=== PATIENT | female | born 1980 | race Caucasian/White ===

== ENCOUNTER 2023-06-26 21:05 | Emergency (ER) | payer OTHER, SELFPAY ==
[2023-06-26 21:40] VITALS: BP 123/63; PULSE 66; RESP 14; TEMP 36.7; O2SAT 100
[2023-06-26 22:46] VITALS: BP 112/52; PULSE 66; RESP 15; TEMP 36.5; O2SAT 100
--- NOTE | 2023-06-26 22:47 | ED.GENADULT ---
HPI - General Adult General Chief complaint: Allergic Reaction Stated complaint: AXR Time Seen by Provider: 06/26/23 21:51 Source: patient Mode of arrival: ambulatory Limitations: no limitations History of Present Illness HPI narrative: This is a 42-year-old female who presents to the ED with chief complaints of possible allergic reaction. Patient reports that she was using a send she was which was used several times the past however tonight it seemed to cause a reaction. Reports that she broke out in hives and had diffuse itching. Reports that since she has been waiting in the emergency department she is starting to feel fine.. She did take a Benadryl prior to arrival and feels that this is helped greatly. Denies any further complaints Related Data Allergies Allergy/AdvReac Type Severity Reaction Status Date / Time No Known Allergies Allergy Verified 06/26/23 22:45 Review of Systems Review of Systems: All systems as dictated in HPI Exam Narrative: GENERAL: Well-appearing, well-nourished, and in no acute distress. HEAD: Normocephalic, atraumatic. EYES: PERRLA and EOMI. ENT: Nares clear, no rhinorrhea or epistaxis. Mucous membranes moist. Oropharynx without tonsillar hypertrophy exudate or other lesions. NECK: Supple. No adenopathy or masses. CHEST: No respiratory distress. Clear to auscultation. No wheezes rales or rhonchi HEART: Regular rate and rhythm. No murmur heard. Normal peripheral pulses. ABDOMEN: Soft, nontender, nondistended, normal active bowel sounds. MSK: Normal range of motion. No edema. SKIN: Warm, dry, no rash. NEURO: Alert and oriented x3. No focal deficits. PSYCH: Normal mood and affect. Course Vital Signs Vital signs: Vital Signs Temperature 98.1 F 06/26/23 21:40 Pulse Rate 66 06/26/23 21:40 Respiratory Rate 14 06/26/23 21:40 Blood Pressure 123/63 06/26/23 21:40 Pulse Oximetry 100 06/26/23 21:40 Oxygen Delivery Room Air 06/26/23 21:40 Temperature 97.7 F 06/26/23 22:46 Pulse Rate 66 06/26/23 22:46 Respiratory Rate 15 06/26/23 22:46 Blood Pressure 112/52 L 06/26/23 22:46 Pulse Oximetry 100 06/26/23 22:46 Oxygen Delivery Room Air 06/26/23 22:46 Medical Decision Making MDM Narrative Medical decision making narrative: This is a 42-year-old female who presents to the ED with chief complaint of possible allergic reaction to a supplement. Vitals are normal. Airway intact. Exam is benign. There is no rash. She had 2 Benadryl prior to arrival which she feels helped. Symptoms consistent with minor allergic reaction. She encouraged to take Benadryl as needed for itching. She does not want any kind of steroid prescription. Pt will be discharged in stable condition. Return precautions given and supportive measures discussed. Pt is understanding and agreeable with plan for discharge and follow-up with PCP. Vital Signs Vital Signs: Vital Signs Temperature 98.1 F 06/26/23 21:40 Pulse Rate 66 06/26/23 21:40 Respiratory Rate 14 06/26/23 21:40 Blood Pressure 123/63 06/26/23 21:40 Pulse Oximetry 100 06/26/23 21:40 Oxygen Delivery Room Air 06/26/23 21:40 Temperature 97.7 F 06/26/23 22:46 Pulse Rate 66 06/26/23 22:46 Respiratory Rate 15 06/26/23 22:46 Blood Pressure 112/52 L 06/26/23 22:46 Pulse Oximetry 100 06/26/23 22:46 Oxygen Delivery Room Air 06/26/23 22:46 Discharge Plan Discharge Clinical Impression: Allergic reaction Patient Disposition: Home, Self-Care Condition: Stable Instructions: Antibiotic Form Additional Instructions: Your exam is reassuring today. Please continue using Benadryl as needed for rash or itching. Return to the ER for any new or worsening symptoms Follow-up/Referrals: Gerardo,SHRUTHI Baum [Primary Care Provider] - Time of Disposition: 22:50
== END 2023-06-26 22:58 | disposition home or self-care (01) ==
PROVIDERS: Emergency Provider Physician Assistant; PCP Physician Assistant
DX: T78.40XA Allergy, unspecified, initial encounter (principal)
CPT/HCPCS: 99281